=== PATIENT | male | born 1965 | race Caucasian/White ===

== ENCOUNTER 2016-09-23 08:36 | Emergency (ER) | payer BC ==
[~2016-09-23] VITALS: Ht 177.8 cm; Wt 77.1 kg
--- NOTE | ~2016-09-23 | EKG ---
[place] [address] [facility] [facility] [place] [address] ELECTROCARDIOGRAM REPORT Name: ALICJA CORONADO Room #: [facility]USA[facility] [id number] Admission: 09/23/16 Attend Phys: Discharge: 09/23/16 Date of : 67 Report #: [id number] THIS REPORT FOR: //name// [facility] ED Test Date: 2016-09-23 Test Time: 08:32:59 Pat Name: ALICJA CORONADO Department: Room: Gender: Control Operator Flow [employer]at: CHARLY Raines : 1965 Requested By: Nelly Ramos Order Number: [id number] MD: Toby Molina Measurements Intervals [place] Rate: 58 P: -26 [place]: 153 QRS: -7 QRSD: 99 T: 35 QT: 417 QTc: 410 Interpretive Statements Sinus bradycardia Otherwise no significant abnormality No previous ECG available for comparison Electronically Signed On 09-26-2016 7:55:47 CDT by Toby Molina [email or web address] <ELECTRONICALLY SIGNED> By: Toby Molina MD, [facility] 09/26/16 0755 0832 08 Toby Molina MD, [facility] /EPI
--- NOTE | ~2016-09-23 | EKG ---
[address] [address] ELECTROCARDIOGRAM REPORT Name: RAGHUCHRISTAALICJA BURNETT Room #: [facility]P [facility] [id number] Admission: 09/23/16 Attend Phys: Discharge: 09/23/16 Date of : 67 Report #: [id number] THIS REPORT FOR: //name// [facility] ED Test Date: 2016-09-23 Test Time: 08:32:59 Pat Name: ALICJA CORONADO Department: Room: Gender: Store Associate: CHARLY Raines : 1965 Requested By: Nelly Ramos Order Number: [id number] MD: Anjel Tony Measurements Intervals [place] Rate: 58 P: -26 [place]: 153 QRS: -7 QRSD: 99 T: 35 QT: 417 QTc: 410 Interpretive Statements Sinus rhythm No previous ECG available for comparison Electronically Signed On 09-23-2016 14:01:58 CDT by Anjel Tony [email or web address] <ELECTRONICALLY SIGNED> By: Anjel Tony MD 09/23/16 1401 0832 1 MD BIANKA Richardson
[2016-09-23 08:57] LABS: ABSOLUTE NEUTROPHILS 2.4 thou/uL (1.4-8.2); BASOPHILS 0.9 % (0.0-2.0); EOSINOPHILS 2.1 % (0.0-3.0); HEMATOCRIT 47.8 % (42.0-52.0); HEMOGLOBIN 16.5 gm/dL (14.0-18.0); LYMPHOCYTES 39.5 % (24.0-44.0); MCH 30.2 pg (26.0-34.0); MCHC 34.6 g/dL (28.0-37.0); MCV 87.3 fL (80.0-100.0); MONOCYTES 9.4 % (1.0-8.0); PLATELET COUNT 169 thou/uL (150-400); POLYS 48.1 % (36.0-66.0); RBC 5.47 mil/uL (4.50-6.00); RDW 13.1 % (10.5-14.5); WBC 5.1 thou/uL (4.0-11.0)
[2016-09-23 08:58] LABS: MANUAL DIFF NO
[2016-09-23 09:05] LABS: ANION GAP 7 mmol/L (7-16); BUN 20 mg/dL (7-18); CALCIUM 9.6 mg/dL (8.5-10.1); CHLORIDE 103 mmol/L (98-107); CO2 30 mmol/L (21-32); CREATININE 1.2 mg/dL (0.7-1.3); GLUCOSE 115 mg/dL (74-106); POTASSIUM 3.6 mmol/L (3.5-5.1); SODIUM 140 mmol/L (136-145)
[2016-09-23 09:13] LABS: TROPONIN-I < 0.04 ng/mL (<0.04-0.07)
[2016-09-23 10:00] VITALS: BP 149/69
== END 2016-09-23 10:01 | disposition home or self-care (01) ==
LOC: ER 08:36
PROVIDERS: Emergency Medicine
DX: R07.9 Chest pain, unspecified (principal); F10.99 Alcohol use, unspecified with unspecified alcohol-induced disorder; Z88.0 Allergy status to penicillin; Z88.2 Allergy status to sulfonamides